=== PATIENT | female | born 1940 | race Two or more races ===

== ENCOUNTER 2020-02-26 12:44 | Inpatient (IN) | payer OTHER ==
[~2020-02-26] VITALS: Ht 162.6 cm; Wt 68.0 kg
[2020-02-26 12:45] VITALS: BP 166/69
[2020-02-26 13:27] LABS: BASOPHILS % (AUTO) 0.2 % (0.0-2.0); EOSINOPHILS % (AUTO) 0.2 % (0.0-4.0); HEMATOCRIT 37.8 % (36-48); HEMOGLOBIN 12.3 g/dL (12.0-16.0); LYMPHOCYTES % (AUTO) 16.8 % (20.5-51.1); MEAN CORPUSCULAR HEMOGLOBIN 30 pg (27-31); MEAN CORPUSCULAR HGB CONC 33 g/dL (33-37); MEAN CORPUSCULAR VOLUME 93.2 fL (80-94); MONOCYTES # (AUTO) 0.8 K/uL (0.8-1.0); NEUTROPHILS # (AUTO) 9.1 K/uL (1.8-7.7); NEUTROPHILS % (AUTO) 75.8 % (42.2-75.2); PLATELET COUNT (AUTO) 210 K/uL (140-450); RED BLOOD CELL COUNT(AUTO) 4.05 MIL/uL (4.20-5.40); RED CELL DISTRIBUTION WIDTH 15.1 % (11.6-13.7)
[2020-02-26 13:39] LABS: PROTHROMBIN TIME 9.8 secs (10.8-13.4)
[2020-02-26 13:41] LABS: LACTATE DEHYDROGENASE 297 U/L (81-234)
[2020-02-26 13:42] LABS: ALBUMIN 2.9 g/dL (3.4-5.0); ANION GAP 19.3 (8-16); ASPARTATE AMINOTRANSFERASE 52 U/L (15-37); CARBON DIOXIDE 19.5 mmol/L (21-32); CHLORIDE 105 mmol/L (98-107); CREATININE 1.2 mg/dL (0.6-1.3); GLUCOSE 131 mg/dL (74-106); POTASSIUM 3.8 mmol/L (3.5-5.1); SODIUM SERUM 140 mmol/L (136-145); TOTAL BILIRUBIN 0.4 mg/dL (0.0-1.0); UREA NITROGEN, BLOOD 14 mg/dL (7-18)
[2020-02-26 14:47] LABS: C-REACTIVE PROTEIN QUANT 25.7 mg/dL (0.0-0.9)
[2020-02-26] MEDS ORDERED: POTASSIUM CHLORIDE 40 MEQ, LIDOCAINE MPF 1% 25 MG in NACL 0.9% 250 ML IV PRN (15:05)
[2020-02-26] MEDS ORDERED: DOCUSATE SODIUM 100 MG GELCAP PO PRN (15:05)
[2020-02-26] MEDS ORDERED: guaiFENesin DM 200/20 MG-10 ML 10 ML UDC PO PRN (15:05)
[2020-02-26] MEDS ORDERED: ONDANSETRON 4 MG/2 ML VIAL IM/IVP PRN (15:05)
[2020-02-26 15:26] LABS: RSV NEGATIVE (NEGATIVE)
[2020-02-26] MEDS: NACL 0.9% 1,000 ML IV SCH ×2 (15:27→22:14)
[2020-02-26] MEDS ORDERED: ALBUTEROL SULFATE/IPRATROPIU 3 ML SOL IH PRN (16:20)
[2020-02-26] MEDS ORDERED: ALBUTEROL HFA MDI 90 MCG/ACTUATION 8 GM INH PRN (16:20)
[2020-02-26 16:58] LABS: CHOL/HDL RATIO 2.9 (1-4.5); FREE T4 (FREE THYROXINE) 1.57 ng/dL (0.76-1.46); PHOSPHORUS 2.5 mg/dL (2.5-4.9); THYROID STIMULATING HORMONE 0.71 uIU/mL (0.34-3.74)
[2020-02-26] MEDS ORDERED: cefTRIAXone 1,000 MG VIAL ONE (17:14)
[2020-02-26] MEDS: ACETAMINOPHEN 325 MG TAB PO PRN (18:58)
[2020-02-26] MEDS ORDERED: NACL 0.9% 1,000 ML IV ONE (19:05)
[2020-02-26] MEDS ORDERED: REMDESIVIR (EUA) 200 MG in NACL 0.9% 100 ML IV ONE (19:35)
[2020-02-26] MEDS ORDERED: remdesivir CLINICAL MONITORING 1 EA MISC MC PRN (19:35)
[2020-02-26] MEDS ORDERED: BENA40TA PO (20:29)
[2020-02-26] MEDS ORDERED: AMLO-271 PO (20:29)
[2020-02-26] MEDS ORDERED: BENZ-196 PO (20:29)
[2020-02-26 21:17] VITALS: BP 143/58
[2020-02-27 00:30] VITALS: BP 154/75
[2020-02-27 04:12] VITALS: BP 153/74
[2020-02-27] MEDS: ACETAMINOPHEN 325 MG TAB PO PRN ×2 (04:13→10:22)
[2020-02-27 08:00] VITALS: BP 134/69
[2020-02-27 08:00] LABS: BASOPHILS % (AUTO) 0.3 % (0.0-2.0); EOSINOPHILS % (AUTO) 0.3 % (0.0-4.0); HEMATOCRIT 35.2 % (36-48); HEMOGLOBIN 11.4 g/dL (12.0-16.0); LYMPHOCYTES # (AUTO) 1.7 K/uL (2.5-16.5); LYMPHOCYTES % (AUTO) 14.3 % (20.5-51.1); MEAN CORPUSCULAR HEMOGLOBIN 30 pg (27-31); MEAN CORPUSCULAR HGB CONC 33 g/dL (33-37); MEAN CORPUSCULAR VOLUME 93.3 fL (80-94); MONOCYTES # (AUTO) 0.7 K/uL (0.8-1.0); MONOCYTES % (AUTO) 5.6 % (1.7-9.3); NEUTROPHILS # (AUTO) 9.4 K/uL (1.8-7.7); NEUTROPHILS % (AUTO) 79.5 % (42.2-75.2); PLATELET COUNT (AUTO) 216 K/uL (140-450); RED BLOOD CELL COUNT(AUTO) 3.77 MIL/uL (4.20-5.40); RED CELL DISTRIBUTION WIDTH 14.6 % (11.6-13.7); WHITE BLOOD COUNT (AUTO) 11.8 K/uL (4.8-10.8)
[2020-02-27 08:29] LABS: CARBON DIOXIDE 20.8 mmol/L (21-32); CREATININE 0.8 mg/dL (0.6-1.3); GLUCOSE 103 mg/dL (74-106); UREA NITROGEN, BLOOD 10 mg/dL (7-18)
[2020-02-27] MEDS ORDERED: COMMUNICATION ORDER MC SCH (09:00)
[2020-02-27] MEDS ORDERED: AZITHROMYCIN 250 MG TAB PO SCH (09:00)
[2020-02-27] MEDS: PANTOPRAZOLE 40 MG TABEC PO SCH (09:02)
[2020-02-27] MEDS: ASCORBIC ACID 500 MG TAB PO SCH (09:02)
[2020-02-27] MEDS: ZINC SULF 220 MG CAP PO SCH (09:03)
[2020-02-27 09:44] LABS: ANION GAP 19.5 (8-16); CHLORIDE 106 mmol/L (98-107); POTASSIUM 3.6 mmol/L (3.5-5.1); SODIUM SERUM 141 mmol/L (136-145)
[2020-02-27 11:58] LABS: ALBUMIN 2.4 g/dL (3.4-5.0); ANION GAP 15.6 (8-16); ASPARTATE AMINOTRANSFERASE 55 U/L (15-37); CARBON DIOXIDE 21.2 mmol/L (21-32); CHLORIDE 107 mmol/L (98-107); CREATININE 0.8 mg/dL (0.6-1.3); GLUCOSE 100 mg/dL (74-106); POTASSIUM 3.8 mmol/L (3.5-5.1); SODIUM SERUM 140 mmol/L (136-145); TOTAL BILIRUBIN 0.3 mg/dL (0.0-1.0); UREA NITROGEN, BLOOD 10 mg/dL (7-18)
[2020-02-27 12:00] VITALS: BP 139/75
[2020-02-27] MEDS: ENOXAPARIN 80 MG/0.8 ML SYR SUBQ SCH (14:25)
[2020-02-27 16:00] VITALS: BP 149/70
[2020-02-27] MEDS: REMDESIVIR (EUA) 100 MG in NACL 0.9% 100 ML IV SCH (18:49)
[2020-02-27 20:00] VITALS: BP 144/68
[2020-02-27] MEDS ORDERED: lisinopriL 10 MG TAB PO SCH (20:30)
[2020-02-28] MEDS: NACL 0.9% 1,000 ML IV SCH ×2 (00:25→17:05)
[2020-02-28 00:30] VITALS: BP 152/80
[2020-02-28 04:30] VITALS: BP 152/78
[2020-02-28 07:09] LABS: BASOPHILS % (AUTO) 0.1 % (0.0-2.0); HEMOGLOBIN 12.1 g/dL (12.0-16.0); LYMPHOCYTES # (AUTO) 1.4 K/uL (2.5-16.5); LYMPHOCYTES % (AUTO) 11.5 % (20.5-51.1); MEAN CORPUSCULAR HEMOGLOBIN 31 pg (27-31); MEAN CORPUSCULAR HGB CONC 34 g/dL (33-37); MEAN CORPUSCULAR VOLUME 92.5 fL (80-94); MONOCYTES # (AUTO) 0.7 K/uL (0.8-1.0); MONOCYTES % (AUTO) 6.3 % (1.7-9.3); NEUTROPHILS # (AUTO) 9.8 K/uL (1.8-7.7); NEUTROPHILS % (AUTO) 82.1 % (42.2-75.2); PLATELET COUNT (AUTO) 275 K/uL (140-450); RED BLOOD CELL COUNT(AUTO) 3.89 MIL/uL (4.20-5.40); RED CELL DISTRIBUTION WIDTH 14.9 % (11.6-13.7); WHITE BLOOD COUNT (AUTO) 11.9 K/uL (4.8-10.8)
[2020-02-28 07:37] LABS: ALBUMIN 2.3 g/dL (3.4-5.0); ANION GAP 16.5 (8-16); ASPARTATE AMINOTRANSFERASE 35 U/L (15-37); CARBON DIOXIDE 19.2 mmol/L (21-32); CHLORIDE 108 mmol/L (98-107); CREATININE 0.9 mg/dL (0.6-1.3); GLUCOSE 125 mg/dL (74-106); POTASSIUM 3.7 mmol/L (3.5-5.1); SODIUM SERUM 140 mmol/L (136-145); TOTAL BILIRUBIN 0.2 mg/dL (0.0-1.0); UREA NITROGEN, BLOOD 18 mg/dL (7-18)
[2020-02-28 08:00] VITALS: BP 155/77
[2020-02-28] MEDS: ALBUTEROL SULFATE/IPRATROPIU 3 ML SOL IH SCH (08:00)
[2020-02-28] MEDS: ASCORBIC ACID 500 MG TAB PO SCH (08:58)
[2020-02-28] MEDS: ZINC SULF 220 MG CAP PO SCH (08:58)
[2020-02-28] MEDS: amLODIPine 5 MG TAB PO SCH (08:58)
[2020-02-28] MEDS: PANTOPRAZOLE 40 MG TABEC PO SCH (08:58)
[2020-02-28] MEDS: BENAZEPRIL 20 MG TAB PO SCH (08:58)
[2020-02-28] MEDS: ENOXAPARIN 80 MG/0.8 ML SYR SUBQ SCH ×2 (09:01→20:41)
[2020-02-28 10:25] LABS: T4 (THYROXINE) 9.5 ug/dL (4.5-12.0)
[2020-02-28 12:00] VITALS: BP 117/53
[2020-02-28] MEDS: ACETAMINOPHEN 325 MG TAB PO PRN (14:52)
[2020-02-28 16:00] VITALS: BP 140/71
[2020-02-28] MEDS: CHLORHEXADINE GLUC 2% CLOTH TP SCH (18:30)
[2020-02-28 20:00] VITALS: BP 145/60
[2020-02-28] MEDS: MUPIROCIN CA NASAL 2% 1GM TUBE NS SCH (21:18)
[2020-02-28] MEDS: REMDESIVIR (EUA) 100 MG in NACL 0.9% 100 ML IV SCH (22:00)
[2020-02-29] VITALS: BP 122/67
[2020-02-29 04:00] VITALS: BP 131/60
[2020-02-29] MEDS: ALBUTEROL SULFATE/IPRATROPIU 3 ML SOL IH SCH ×4 (07:00→19:00)
[2020-02-29 08:00] VITALS: BP 151/77
[2020-02-29 09:34] LABS: HEMOGLOBIN 11.8 g/dL (12.0-16.0); MEAN CORPUSCULAR VOLUME 92.4 fL (80-94)
[2020-02-29] MEDS: NACL 0.9% 1,000 ML IV SCH (09:45)
[2020-02-29 09:48] LABS: ALBUMIN 2.4 g/dL (3.4-5.0); ANION GAP 10.5 (8-16); ASPARTATE AMINOTRANSFERASE 35 U/L (15-37); CARBON DIOXIDE 23.4 mmol/L (21-32); CHLORIDE 109 mmol/L (98-107); CREATININE 0.9 mg/dL (0.6-1.3); GLUCOSE 152 mg/dL (74-106); POTASSIUM 3.9 mmol/L (3.5-5.1); SODIUM SERUM 139 mmol/L (136-145); TOTAL BILIRUBIN 0.2 mg/dL (0.0-1.0); UREA NITROGEN, BLOOD 21 mg/dL (7-18)
[2020-02-29 09:49] LABS: BASOPHILS % (AUTO) 0.2 % (0.0-2.0); HEMATOCRIT 35.9 % (36-48); LYMPHOCYTES # (AUTO) 1.3 K/uL (2.5-16.5); LYMPHOCYTES % (AUTO) 8.6 % (20.5-51.1); MEAN CORPUSCULAR HEMOGLOBIN 30 pg (27-31); MEAN CORPUSCULAR HGB CONC 33 g/dL (33-37); MONOCYTES # (AUTO) 1.1 K/uL (0.8-1.0); NEUTROPHILS # (AUTO) 13.1 K/uL (1.8-7.7); NEUTROPHILS % (AUTO) 84.2 % (42.2-75.2); PLATELET COUNT (AUTO) 333 K/uL (140-450); RED BLOOD CELL COUNT(AUTO) 3.88 MIL/uL (4.20-5.40); RED CELL DISTRIBUTION WIDTH 15.1 % (11.6-13.7); WHITE BLOOD COUNT (AUTO) 15.6 K/uL (4.8-10.8)
[2020-02-29] MEDS: amLODIPine 5 MG TAB PO SCH (10:29)
[2020-02-29] MEDS: ASCORBIC ACID 500 MG TAB PO SCH (10:29)
[2020-02-29] MEDS: PANTOPRAZOLE 40 MG TABEC PO SCH (10:30)
[2020-02-29] MEDS: BENAZEPRIL 20 MG TAB PO SCH (10:30)
[2020-02-29] MEDS: ENOXAPARIN 80 MG/0.8 ML SYR SUBQ SCH ×2 (10:32→20:06)
[2020-02-29] MEDS: ZINC SULF 220 MG CAP PO SCH (11:02)
[2020-02-29 12:00] VITALS: BP 137/73
[2020-02-29] MEDS ORDERED: ALBUTEROL HFA MDI 90 MCG/ACTUATION 8 GM INH PRN (13:40)
[2020-02-29 16:00] VITALS: BP 140/78
[2020-02-29] MEDS: HYDROcodone/APAP 7.5/325 MG 1 TAB PO PRN (17:47)
[2020-02-29] MEDS: CHLORHEXADINE GLUC 2% CLOTH TP SCH (19:15)
[2020-02-29 20:00] VITALS: BP 144/85
[2020-02-29] MEDS: MUPIROCIN CA NASAL 2% 1GM TUBE NS SCH (20:05)
[2020-02-29] MEDS: REMDESIVIR (EUA) 100 MG in NACL 0.9% 100 ML IV SCH (20:05)
[2020-03-01] VITALS: BP 145/62
[2020-03-01] MEDS: ZOLPIDEM 5 MG TAB PO PRN ×2 (00:25→22:03)
[2020-03-01] MEDS: NACL 0.9% 1,000 ML IV SCH ×2 (00:25→20:09)
[2020-03-01] MEDS: ALBUTEROL SULFATE/IPRATROPIU 3 ML SOL IH SCH ×4 (01:00→19:00)
[2020-03-01 04:00] VITALS: BP 92/64
[2020-03-01 08:00] VITALS: BP 95/55
[2020-03-01] MEDS: BENAZEPRIL 20 MG TAB PO SCH (09:00)
[2020-03-01] MEDS: amLODIPine 5 MG TAB PO SCH (09:00)
[2020-03-01 09:37] LABS: BASOPHILS % (AUTO) 0.1 % (0.0-2.0); HEMATOCRIT 35.2 % (36-48); HEMOGLOBIN 11.6 g/dL (12.0-16.0); LYMPHOCYTES # (AUTO) 1.1 K/uL (2.5-16.5); LYMPHOCYTES % (AUTO) 9.1 % (20.5-51.1); MEAN CORPUSCULAR HEMOGLOBIN 30 pg (27-31); MEAN CORPUSCULAR HGB CONC 33 g/dL (33-37); MEAN CORPUSCULAR VOLUME 92.5 fL (80-94); MONOCYTES # (AUTO) 1.1 K/uL (0.8-1.0); MONOCYTES % (AUTO) 9.4 % (1.7-9.3); NEUTROPHILS # (AUTO) 9.8 K/uL (1.8-7.7); NEUTROPHILS % (AUTO) 81.4 % (42.2-75.2); PLATELET COUNT (AUTO) 324 K/uL (140-450); RED BLOOD CELL COUNT(AUTO) 3.81 MIL/uL (4.20-5.40); RED CELL DISTRIBUTION WIDTH 14.8 % (11.6-13.7); WHITE BLOOD COUNT (AUTO) 12.1 K/uL (4.8-10.8)
[2020-03-01] MEDS: PANTOPRAZOLE 40 MG TABEC PO SCH (09:37)
[2020-03-01] MEDS: ENOXAPARIN 80 MG/0.8 ML SYR SUBQ SCH ×2 (09:37→20:13)
[2020-03-01] MEDS: HYDROcodone/APAP 7.5/325 MG 1 TAB PO PRN (09:38)
[2020-03-01] MEDS: ASCORBIC ACID 500 MG TAB PO SCH (09:38)
[2020-03-01] MEDS: ZINC SULF 220 MG CAP PO SCH (09:39)
[2020-03-01 09:44] LABS: ALBUMIN 2.4 g/dL (3.4-5.0); ANION GAP 11.8 (8-16); ASPARTATE AMINOTRANSFERASE 63 U/L (15-37); CARBON DIOXIDE 23.9 mmol/L (21-32); CHLORIDE 107 mmol/L (98-107); CREATININE 0.8 mg/dL (0.6-1.3); GLUCOSE 125 mg/dL (74-106); POTASSIUM 3.7 mmol/L (3.5-5.1); SODIUM SERUM 139 mmol/L (136-145); TOTAL BILIRUBIN 0.3 mg/dL (0.0-1.0); UREA NITROGEN, BLOOD 18 mg/dL (7-18)
[2020-03-01 10:07] LABS: PHOSPHORUS 2.4 mg/dL (2.5-4.9)
[2020-03-01 12:00] VITALS: BP 131/50
[2020-03-01] MEDS ORDERED: POTASSIUM PHOSPHATE 15 MM in NACL 0.9% 250 ML IV ONE (14:30)
[2020-03-01 16:00] VITALS: BP 132/61
[2020-03-01] MEDS: CHLORHEXADINE GLUC 2% CLOTH TP SCH (18:30)
[2020-03-01 20:00] VITALS: BP 131/56
[2020-03-01] MEDS: REMDESIVIR (EUA) 100 MG in NACL 0.9% 100 ML IV SCH (20:11)
[2020-03-01] MEDS: MUPIROCIN CA NASAL 2% 1GM TUBE NS SCH (20:12)
[2020-03-01 21:16] LABS: APPEARANCE,URINE CLEAR (CLEAR); BILIRUBIN,URINE NEGATIVE (NEGATIVE); BLOOD, URINE NEGATIVE (NEGATIVE); COLOR,URINE YELLOW (YELLOW); LEUKOCYTE ESTERASE ,URINE NEGATIVE (NEGATIVE); NITRITE, URINE NEGATIVE (NEGATIVE); UGLUCOSE NEGATIVE (NEGATIVE)
[2020-03-02] VITALS: BP 141/67
[2020-03-02] MEDS: ALBUTEROL SULFATE/IPRATROPIU 3 ML SOL IH SCH ×2 (01:00→19:00)
[2020-03-02 04:00] VITALS: BP 113/56
[2020-03-02 06:55] LABS: EOSINOPHILS % (AUTO) 0.1 % (0.0-4.0); HEMATOCRIT 35.6 % (36-48); HEMOGLOBIN 11.9 g/dL (12.0-16.0); LYMPHOCYTES # (AUTO) 1.2 K/uL (2.5-16.5); LYMPHOCYTES % (AUTO) 11.4 % (20.5-51.1); MEAN CORPUSCULAR HEMOGLOBIN 31 pg (27-31); MEAN CORPUSCULAR HGB CONC 33 g/dL (33-37); MONOCYTES # (AUTO) 0.9 K/uL (0.8-1.0); NEUTROPHILS # (AUTO) 8.2 K/uL (1.8-7.7); NEUTROPHILS % (AUTO) 79.5 % (42.2-75.2); PLATELET COUNT (AUTO) 347 K/uL (140-450); RED BLOOD CELL COUNT(AUTO) 3.87 MIL/uL (4.20-5.40); RED CELL DISTRIBUTION WIDTH 14.6 % (11.6-13.7); WHITE BLOOD COUNT (AUTO) 10.3 K/uL (4.8-10.8)
[2020-03-02 07:28] LABS: PHOSPHORUS 2.6 mg/dL (2.5-4.9)
[2020-03-02 07:38] LABS: MAGNESIUM 2.1 mg/dL (1.8-2.4)
[2020-03-02 07:44] LABS: ALBUMIN 2.4 g/dL (3.4-5.0); ANION GAP 12.2 (8-16); ASPARTATE AMINOTRANSFERASE 46 U/L (15-37); CARBON DIOXIDE 25.6 mmol/L (21-32); CHLORIDE 104 mmol/L (98-107); CREATININE 0.8 mg/dL (0.6-1.3); GLUCOSE 113 mg/dL (74-106); POTASSIUM 3.8 mmol/L (3.5-5.1); SODIUM SERUM 138 mmol/L (136-145); TOTAL BILIRUBIN 0.3 mg/dL (0.0-1.0); UREA NITROGEN, BLOOD 18 mg/dL (7-18)
[2020-03-02 08:00] VITALS: BP 109/47
[2020-03-02] MEDS: ASCORBIC ACID 500 MG TAB PO SCH (08:56)
[2020-03-02] MEDS: BENAZEPRIL 20 MG TAB PO SCH (08:56)
[2020-03-02] MEDS: PANTOPRAZOLE 40 MG TABEC PO SCH (08:57)
[2020-03-02] MEDS: amLODIPine 5 MG TAB PO SCH (08:57)
[2020-03-02] MEDS: ZINC SULF 220 MG CAP PO SCH (08:57)
[2020-03-02] MEDS: ENOXAPARIN 80 MG/0.8 ML SYR SUBQ SCH ×2 (09:02→20:50)
[2020-03-02 12:00] VITALS: BP 146/65
[2020-03-02] MEDS: NACL 0.9% 1,000 ML IV SCH (13:20)
[2020-03-02 16:00] VITALS: BP 119/58
[2020-03-02 20:00] VITALS: BP 126/76
[2020-03-02] MEDS: CHLORHEXADINE GLUC 2% CLOTH TP SCH (20:00)
[2020-03-02] MEDS: MUPIROCIN CA NASAL 2% 1GM TUBE NS SCH (20:49)
[2020-03-03] VITALS: BP 134/51
[2020-03-03] MEDS: ALBUTEROL SULFATE/IPRATROPIU 3 ML SOL IH SCH ×2 (01:00→20:02)
[2020-03-03 04:00] VITALS: BP 128/68
[2020-03-03] MEDS: NACL 0.9% 1,000 ML IV SCH ×2 (04:25→18:23)
[2020-03-03 06:24] LABS: BASOPHILS % (AUTO) 0.1 % (0.0-2.0); HEMOGLOBIN 12.3 g/dL (12.0-16.0); MONOCYTES # (AUTO) 1.1 K/uL (0.8-1.0)
[2020-03-03 07:05] LABS: EOSINOPHILS % (AUTO) 0.3 % (0.0-4.0); HEMATOCRIT 37.7 % (36-48); LYMPHOCYTES # (AUTO) 1.2 K/uL (2.5-16.5); LYMPHOCYTES % (AUTO) 10.2 % (20.5-51.1); MEAN CORPUSCULAR HEMOGLOBIN 30 pg (27-31); MEAN CORPUSCULAR HGB CONC 33 g/dL (33-37); MEAN CORPUSCULAR VOLUME 93.1 fL (80-94); NEUTROPHILS # (AUTO) 9.7 K/uL (1.8-7.7); NEUTROPHILS % (AUTO) 80.4 % (42.2-75.2); PLATELET COUNT (AUTO) 348 K/uL (140-450); RED BLOOD CELL COUNT(AUTO) 4.05 MIL/uL (4.20-5.40); RED CELL DISTRIBUTION WIDTH 14.6 % (11.6-13.7); WHITE BLOOD COUNT (AUTO) 12.1 K/uL (4.8-10.8)
[2020-03-03 08:00] VITALS: BP 142/71
[2020-03-03 09:08] LABS: ALBUMIN 2.3 g/dL (3.4-5.0); ANION GAP 9.4 (8-16); ASPARTATE AMINOTRANSFERASE 38 U/L (15-37); CARBON DIOXIDE 27.6 mmol/L (21-32); CHLORIDE 103 mmol/L (98-107); CREATININE 0.9 mg/dL (0.6-1.3); GLUCOSE 139 mg/dL (74-106); SODIUM SERUM 136 mmol/L (136-145); TOTAL BILIRUBIN 0.3 mg/dL (0.0-1.0); UREA NITROGEN, BLOOD 22 mg/dL (7-18)
[2020-03-03] MEDS: ZINC SULF 220 MG CAP PO SCH (09:10)
[2020-03-03] MEDS: PANTOPRAZOLE 40 MG TABEC PO SCH (09:11)
[2020-03-03] MEDS: BENAZEPRIL 20 MG TAB PO SCH (09:11)
[2020-03-03] MEDS: ASCORBIC ACID 500 MG TAB PO SCH (09:11)
[2020-03-03] MEDS: amLODIPine 5 MG TAB PO SCH (09:11)
[2020-03-03] MEDS: ENOXAPARIN 80 MG/0.8 ML SYR SUBQ SCH ×2 (09:13→21:32)
[2020-03-03 09:31] LABS: MAGNESIUM 2.1 mg/dL (1.8-2.4); PHOSPHORUS 2.7 mg/dL (2.5-4.9)
[2020-03-03 12:00] VITALS: BP_SYST 135; BP_SYST 174; BP_DIAS 47; BP_DIAS 76
[2020-03-03 16:00] VITALS: BP 124/76
[2020-03-03] MEDS: CHLORHEXADINE GLUC 2% CLOTH TP SCH (18:28)
[2020-03-03 20:00] VITALS: BP 103/45
[2020-03-03] MEDS: MUPIROCIN CA NASAL 2% 1GM TUBE NS SCH (21:31)
[2020-03-04] VITALS: BP 111/51
[2020-03-04] MEDS: ALBUTEROL SULFATE/IPRATROPIU 3 ML SOL IH SCH ×4 (01:00→19:00)
[2020-03-04 04:00] VITALS: BP 143/82
[2020-03-04 06:49] LABS: BASOPHILS % (AUTO) 0.1 % (0.0-2.0); EOSINOPHILS % (AUTO) 0.1 % (0.0-4.0); HEMATOCRIT 34.5 % (36-48); HEMOGLOBIN 11.6 g/dL (12.0-16.0); LYMPHOCYTES % (AUTO) 12.2 % (20.5-51.1); MEAN CORPUSCULAR HEMOGLOBIN 31 pg (27-31); MEAN CORPUSCULAR HGB CONC 34 g/dL (33-37); MEAN CORPUSCULAR VOLUME 92.3 fL (80-94); MONOCYTES # (AUTO) 0.6 K/uL (0.8-1.0); NEUTROPHILS # (AUTO) 6.3 K/uL (1.8-7.7); NEUTROPHILS % (AUTO) 79.6 % (42.2-75.2); PLATELET COUNT (AUTO) 349 K/uL (140-450); RED BLOOD CELL COUNT(AUTO) 3.74 MIL/uL (4.20-5.40); RED CELL DISTRIBUTION WIDTH 14.8 % (11.6-13.7); WHITE BLOOD COUNT (AUTO) 7.9 K/uL (4.8-10.8)
[2020-03-04 07:25] LABS: ANION GAP 11.1 (8-16); CARBON DIOXIDE 24.1 mmol/L (21-32); CHLORIDE 105 mmol/L (98-107); CREATININE 0.8 mg/dL (0.6-1.3); GLUCOSE 158 mg/dL (74-106); POTASSIUM 4.2 mmol/L (3.5-5.1); SODIUM SERUM 136 mmol/L (136-145); UREA NITROGEN, BLOOD 23 mg/dL (7-18)
[2020-03-04 07:56] LABS: MAGNESIUM 2.1 mg/dL (1.8-2.4)
[2020-03-04 08:00] VITALS: BP 115/58
[2020-03-04] MEDS: BENAZEPRIL 20 MG TAB PO SCH (09:31)
[2020-03-04] MEDS: ZINC SULF 220 MG CAP PO SCH (09:32)
[2020-03-04] MEDS: amLODIPine 5 MG TAB PO SCH (09:32)
[2020-03-04] MEDS: ASCORBIC ACID 500 MG TAB PO SCH (09:32)
[2020-03-04] MEDS: PANTOPRAZOLE 40 MG TABEC PO SCH (09:32)
[2020-03-04] MEDS: ENOXAPARIN 80 MG/0.8 ML SYR SUBQ SCH ×2 (09:33→20:24)
[2020-03-04] MEDS: NACL 0.9% 1,000 ML IV SCH (11:57)
[2020-03-04 12:00] VITALS: BP 104/56
[2020-03-04 16:00] VITALS: BP 104/56
[2020-03-04 20:00] VITALS: BP 114/66
[2020-03-05] VITALS: BP 122/58
[2020-03-05] MEDS: ALBUTEROL SULFATE/IPRATROPIU 3 ML SOL IH SCH ×4 (01:00→19:00)
[2020-03-05 04:00] VITALS: BP 121/55
[2020-03-05] MEDS: NACL 0.9% 1,000 ML IV SCH ×2 (05:41→23:05)
[2020-03-05 06:50] LABS: BASOPHILS % (AUTO) 0.1 % (0.0-2.0); EOSINOPHILS % (AUTO) 0.1 % (0.0-4.0); HEMATOCRIT 34.2 % (36-48); HEMOGLOBIN 11.5 g/dL (12.0-16.0); LYMPHOCYTES # (AUTO) 1.4 K/uL (2.5-16.5); LYMPHOCYTES % (AUTO) 13.2 % (20.5-51.1); MEAN CORPUSCULAR HEMOGLOBIN 31 pg (27-31); MEAN CORPUSCULAR HGB CONC 34 g/dL (33-37); MEAN CORPUSCULAR VOLUME 92.2 fL (80-94); MONOCYTES % (AUTO) 9.7 % (1.7-9.3); NEUTROPHILS # (AUTO) 8.2 K/uL (1.8-7.7); NEUTROPHILS % (AUTO) 76.9 % (42.2-75.2); PLATELET COUNT (AUTO) 372 K/uL (140-450); RED BLOOD CELL COUNT(AUTO) 3.71 MIL/uL (4.20-5.40); RED CELL DISTRIBUTION WIDTH 14.9 % (11.6-13.7); WHITE BLOOD COUNT (AUTO) 10.7 K/uL (4.8-10.8)
[2020-03-05 07:11] LABS: ANION GAP 8.8 (8-16); CARBON DIOXIDE 24.6 mmol/L (21-32); CHLORIDE 104 mmol/L (98-107); CREATININE 0.8 mg/dL (0.6-1.3); GLUCOSE 140 mg/dL (74-106); POTASSIUM 4.4 mmol/L (3.5-5.1); SODIUM SERUM 133 mmol/L (136-145); UREA NITROGEN, BLOOD 24 mg/dL (7-18)
[2020-03-05 07:15] LABS: PHOSPHORUS 3.1 mg/dL (2.5-4.9)
[2020-03-05 08:00] VITALS: BP 114/59
[2020-03-05 08:57] LABS: MAGNESIUM 1.4 mg/dL (1.8-2.4)
[2020-03-05] MEDS: ENOXAPARIN 80 MG/0.8 ML SYR SUBQ SCH ×2 (09:07→21:08)
[2020-03-05] MEDS: ZINC SULF 220 MG CAP PO SCH (09:07)
[2020-03-05] MEDS: amLODIPine 5 MG TAB PO SCH (09:09)
[2020-03-05] MEDS: PANTOPRAZOLE 40 MG TABEC PO SCH (09:09)
[2020-03-05] MEDS: BENAZEPRIL 20 MG TAB PO SCH (09:09)
[2020-03-05] MEDS: ASCORBIC ACID 500 MG TAB PO SCH (09:10)
[2020-03-05 12:00] VITALS: BP 126/58
[2020-03-05 16:00] VITALS: BP 115/51
[2020-03-05 20:00] VITALS: BP 127/70
[2020-03-06] VITALS: BP 128/54
[2020-03-06] MEDS: NACL 0.9% 1,000 ML IV SCH (03:35)
[2020-03-06 04:00] VITALS: BP 133/58
[2020-03-06 08:00] VITALS: BP 128/65
[2020-03-06] MEDS: ZINC SULF 220 MG CAP PO SCH (09:47)
[2020-03-06] MEDS: ASCORBIC ACID 500 MG TAB PO SCH (09:47)
[2020-03-06] MEDS: ENOXAPARIN 80 MG/0.8 ML SYR SUBQ SCH ×2 (09:47→21:22)
[2020-03-06] MEDS: PANTOPRAZOLE 40 MG TABEC PO SCH (09:48)
[2020-03-06] MEDS: BENAZEPRIL 20 MG TAB PO SCH (09:48)
[2020-03-06] MEDS: amLODIPine 5 MG TAB PO SCH (09:48)
[2020-03-06 12:00] VITALS: BP 111/40
[2020-03-06] MEDS ORDERED: ASPI-1205 PO (15:54)
[2020-03-06 16:00] VITALS: BP 113/50
[2020-03-06 20:00] VITALS: BP 137/47
[2020-03-07] VITALS: BP 108/38
[2020-03-07 04:00] VITALS: BP 123/59
[2020-03-07 08:00] VITALS: BP 124/70
[2020-03-07] MEDS ORDERED: MAGNESIUM OXIDE 400 MG TAB PO SCH (09:30)
[2020-03-07] MEDS: NACL 0.9% 1,000 ML IV SCH (09:52)
[2020-03-07] MEDS: PANTOPRAZOLE 40 MG TABEC PO SCH (09:54)
[2020-03-07] MEDS: ZINC SULF 220 MG CAP PO SCH (09:55)
[2020-03-07] MEDS: amLODIPine 5 MG TAB PO SCH (09:55)
[2020-03-07] MEDS: ASCORBIC ACID 500 MG TAB PO SCH (09:55)
[2020-03-07] MEDS: BENAZEPRIL 20 MG TAB PO SCH (09:55)
[2020-03-07] MEDS: ENOXAPARIN 80 MG/0.8 ML SYR SUBQ SCH ×2 (09:56→21:57)
[2020-03-07 12:00] VITALS: BP 120/63
[2020-03-07 16:00] VITALS: BP 123/55
[2020-03-07 20:00] VITALS: BP 133/58
== END 2020-03-07 23:50 | disposition home or self-care (01) | DRG 871 ==
LOC: MED 12:44 → MTU 15:06
PROVIDERS: ADMIT Family Medicine; ATTEND Family Medicine
DX: A41.89 Other specified sepsis (principal); J12.89 Other viral pneumonia; U07.1 COVID-19; J96.01 Acute respiratory failure with hypoxia; E43 Unspecified severe protein-calorie malnutrition; E44.0 Moderate protein-calorie malnutrition; N39.0 Urinary tract infection, site not specified; I47.1 Supraventricular tachycardia; J42 Unspecified chronic bronchitis; B96.20 Unspecified Escherichia coli [E. coli] as the cause of diseases classified elsewhere; I10 Essential (primary) hypertension; Z90.49 Acquired absence of other specified parts of digestive tract; Z90.710 Acquired absence of both cervix and uterus; Z68.25 Body mass index [BMI] 25.0-25.9, adult
CPT/HCPCS: 36415; 71045; 80048; 80053; 81003; 82150; 82550; 82728; 82948; 83036; 83605; 83615; 83690; 83735; 83880; 84100; 84436; 84439; 84443; 84479; 84484; 85025; 85379; 85384; 85610; 85651; 85730; 86140; 86886; 86900; 86901; 87040; 87081; 87086; 87420; 87804; 92610; 96365; 97110; 97112; 97116; 97161-GP; 97530; 99291; J0696; J1644; J1650; J7030; J7060